=== PATIENT | female | born 1995 | race African-American/Black ===

== ENCOUNTER 2024-11-17 15:18 | Emergency (ER) | payer MEDICAID ==
[~2024-11-17] VITALS: Ht 180.3 cm; Wt 120.0 kg
[2024-11-17 15:29] VITALS: O2SAT 99
[2024-11-17] MEDS ORDERED: IBUP-2029 MT (16:38)
[2024-11-17] MEDS: IBUPROFEN 600MG TABLET PO ONE (16:49)
[2024-11-17 18:25] VITALS: BP 135/76; PULSE 85; RESP 14; TEMP 37.2; O2SAT 95
== END 2024-11-17 18:30 | disposition home or self-care (01) ==
LOC: ER 15:18
DX: S82.832A Other fracture of upper and lower end of left fibula, initial encounter for closed fracture (principal); X58.XXXA Exposure to other specified factors, initial encounter; Y93.89 Activity, other specified; Y92.89 Other specified places as the place of occurrence of the external cause; Y99.8 Other external cause status
CPT/HCPCS: 29515; 73610; 73630; 99284